=== PATIENT | female | born 1980 | race Caucasian/White ===

== ENCOUNTER 2017-07-18 17:54 | Emergency (ER) | payer OTHER ==
--- NOTE | 2017-07-18 18:09 | PDOC ---
Rapid Medical Evaluation Medical Evaluation: Allergies Allergy/AdvReac Type Severity Reaction Status Date / Time No Known Allergies Allergy Verified 08/25/14 00:05 07/18/17 18:09 Pt seen 36 yr old with a left hand 5th finger fx from tuesday at [facility] and it is splinted, now can not find a orthopedic and needs to be reasssesed. ordered left hand xray PT to be seen and evaluated by ER
[2017-07-18 18:10] VITALS: BP 139/74; PULSE 98; TEMP 98; BMI 29.7
[2017-07-18] MEDS ORDERED: IBUPROFEN 600 MG TABLET (FP) PO ONE ×2 (19:05)
--- NOTE | 2017-07-18 19:09 | PDOC ---
History of Present Illness - General Chief Complaint: Injury Stated Complaint: FINGER INJURY Time Seen by Provider: 07/18/17 18:13 History Source: Patient Exam Limitations: No Limitations - History of Present Illness Initial Comments: 07/18/17 19:10 This is a 36-year-old woman without significant past medical history presents emergency Department today with 3 days of left finger pain status post having a car door slam on her. Patient states that Tuesday afternoon she was better and in a car door when her daughter closed the door on her finger. She was evaluated at another hospital and told she had a fracture and was given a referral to an orthopedist who does not take her insurance. When she called her insurance company they referred her to [facility] through phone number and when she called she was told to come to the emergency room to see the on-call orthopedist. Past History - Past Medical History Allergies/Adverse Reactions: Allergies Allergy/AdvReac Type Severity Reaction Status Date / Time No Known Allergies Allergy Verified 07/18/17 18:03 Home Medications: Ambulatory Orders NK [No Known Home Medication] 07/18/17 Anemia: Yes COPD: No HTN: Yes - Suicide/Smoking/Psychosocial Hx Smoking History: Current every day smoker Have you smoked in the past 12 months: Yes Number of Cigarettes Smoked Daily: 10 Information on smoking cessation initiated: Yes 'Breaking Loose' booklet given: 07/18/17 Hx Alcohol Use: No Drug/Substance Use Hx: No Substance Use Type: None Review of Systems - Review of Systems Able to Perform ROS?: Yes Is the patient limited Occitan proficient: No Constitutional: No: Symptoms Reported HEENTM: No: Symptoms Reported Respiratory: No: Symptoms reported Cardiac (ROS): No: Symptoms Reported ABD/GI: No: Symptoms Reported : No: Symptoms Reported Musculoskeletal: Yes: See HPI Integumentary: No: Symptoms Reported Neurological: No: Symptoms reported Endocrine: No: Symptoms Reported *Physical Exam - Vital Signs Last Vital Signs Temp Pulse Resp BP Pulse Ox 98.0 F 98 H 18 139/74 100 07/18/17 18:03 07/18/17 18:03 07/18/17 18:03 07/18/17 18:03 07/18/17 18:03 - Physical Exam General Appearance: Yes: Appropriately Dressed. No: Apparent Distress HEENT: positive: Normal ENT Inspection Neck: positive: Trachea midline, Supple Respiratory/Chest: positive: Lungs Clear, Normal Breath Sounds. negative: Respiratory Distress, Accessory Muscle Use Cardiovascular: positive: Regular Rhythm, Regular Rate. negative: Murmur Gastrointestinal/Abdominal: positive: Normal Bowel Sounds, Soft. negative: Tender Musculoskeletal: positive: Normal Inspection. negative: CVA Tenderness Extremity: positive: Normal Inspection, Swelling (over left fifth phalanx). negative: Normal Range of Motion Integumentary: positive: Normal Color, Dry, Warm Neurologic: positive: Alert, Normal Response Medical Decision Making - Medical Decision Making 07/18/17 19:13 A/P: 36-year-old woman without significant past medical history with 3 days of right hand pain Swelling and tenderness to the proximal phalanx of the fifth digit of the left hand Finger splint in place from previous ED visit on 07/15 No discoloration noted Capillary refill less than 2 seconds X-ray done in rapid medical evaluation reveals a mildly displaced fracture of the proximal phalanx of the fifth digit on the left hand. I will discharge the patient with referral to Dr. Galindo for continued evaluation of this orthopedic issue *DC/Admit/Observation/Transfer Diagnosis at time of Disposition: Finger fracture, left Qualifiers: Encounter type: subsequent encounter Finger: little finger Fracture type: closed Phalanx: proximal Fracture alignment: displaced - Discharge Dispostion Disposition: HOME Condition at time of disposition: Stable Admit: No - Referrals Referrals: Maikel Murdock [Primary Care Provider] - Henrry Galindo MD [Staff Physician] - - Patient Instructions Additional Instructions: You have been given the recommendation to see orthopedist Dr. Galindo. Please call his office for evaluation at the number you been provided. Take Motrin as Prevacid prescribed for pain. Return to emergency department for any other concerns. - Post Discharge Activity Forms/Work/School Notes: Back to Work
== END 2017-07-18 19:23 | disposition home or self-care (01) ==
LOC: JERFT 17:54
DX: S62.617D Displaced fracture of proximal phalanx of left little finger, subsequent encounter for fracture with routine healing (principal); V48.3XXD Unspecified car occupant injured in noncollision transport accident in nontraffic accident, subsequent encounter
CPT/HCPCS: 73130-TC-LR-FY; 99281-25

== ENCOUNTER 2018-01-11 13:45 | Emergency (ER) | payer OTHER ==
[2018-01-11 14:01] VITALS: BP 140/72; PULSE 95; TEMP 99.3; BMI 36.3
--- NOTE | 2018-01-11 14:30 | PDOC ---
History of Present Illness - General Chief Complaint: Cold Symptoms Stated Complaint: Cold Symptoms Time Seen by Provider: 01/11/18 14:18 - History of Present Illness Initial Comments: 37-year-old female without comorbidities presents for evaluation of cough and fever is general and as well as general malaise 2 days. 01/11/18 14:28 Past History - Past Medical History Allergies/Adverse Reactions: Allergies Allergy/AdvReac Type Severity Reaction Status Date / Time No Known Allergies Allergy Verified 01/11/18 13:58 Home Medications: Ambulatory Orders NK [No Known Home Medication] 07/18/17 Anemia: Yes COPD: No HTN: Yes - Suicide/Smoking/Psychosocial Hx Smoking History: Current every day smoker Have you smoked in the past 12 months: Yes Number of Cigarettes Smoked Daily: 20 Information on smoking cessation initiated: No 'Breaking Loose' booklet given: 07/18/17 Hx Alcohol Use: No Drug/Substance Use Hx: No Substance Use Type: None Review of Systems - Review of Systems Constitutional: Yes: Chills, Fever, Malaise, Night Sweats Respiratory: Yes: Cough All Other Systems: Reviewed and Negative *Physical Exam - Vital Signs Last Vital Signs Temp Pulse Resp BP Pulse Ox 99.3 F 95 H 16 140/72 100 01/11/18 13:59 01/11/18 13:59 01/11/18 13:59 01/11/18 13:59 01/11/18 13:59 - Physical Exam Comments: HEAD: NC/AT EYES: Conjuntiva clear Ears: Canals and TM's normal NOSE: No d/c THROAT: Moist mucous membrances, oral pharanx clear, uvula midline NECK: Supple without adenopathy CARDIAC: S1 S2 LUNGS: CTA Full and Equal breath sounds ABDOMEN: Soft NT ND MS: Full ROM in all joints without edema NEUROLOGIC: No gross sensory or motor deficits, NVID SKIN: Normal color and temperature no lesions or rashes 01/11/18 14:28 Medical Decision Making - Medical Decision Making 01/11/18 15:12 Flu swab negative, most likely a viral upper respiratory intact infection *DC/Admit/Observation/Transfer Diagnosis at time of Disposition: URI (upper respiratory infection) - Discharge Dispostion Disposition: HOME Condition at time of disposition: Stable Decision to Admit order: No - Referrals Referrals: Maikel Murdock [Primary Care Provider] - - Patient Instructions Printed Discharge Instructions: DI for Viral Upper Respiratory Infection -- Adult Additional Instructions: Take Tylenol and Motrin for pain. Return to the emergency room should symptoms worsen or go unresolved. Please follow-up with her primary care physician once 2 days further evaluation and treatment options. - Post Discharge Activity
== END 2018-01-11 15:17 | disposition home or self-care (01) ==
LOC: JERFT 13:45
DX: J06.9 Acute upper respiratory infection, unspecified (principal)
CPT/HCPCS: 87804; 99281-25

== ENCOUNTER 2018-03-29 18:57 | Emergency (ER) | payer OTHER ==
[2018-03-29 19:02] VITALS: BP 142/72; PULSE 102; TEMP 98.2; BMI 31.3
--- NOTE | 2018-03-29 19:28 | PDOC ---
History of Present Illness - General Chief Complaint: Toothache Stated Complaint: TOOTHACHE Time Seen by Provider: 03/29/18 19:12 - History of Present Illness Initial Comments: 03/29/18 19:26 37-year-old female without comorbidities presents for evaluation of toothache 2 days without systemic symptoms. Past History - Past Medical History Allergies/Adverse Reactions: Allergies Allergy/AdvReac Type Severity Reaction Status Date / Time No Known Allergies Allergy Verified 03/29/18 19:02 Home Medications: Ambulatory Orders Amoxicillin - [Amoxicillin 875mg Tablet -] 875 mg PO BID #14 tab 03/29/18 Ibuprofen [Motrin -] 600 mg PO TID #30 tablet 03/29/18 Anemia: Yes COPD: No HTN: Yes - Suicide/Smoking/Psychosocial Hx Smoking History: Never smoked Have you smoked in the past 12 months: Yes Number of Cigarettes Smoked Daily: 20 Information on smoking cessation initiated: No 'Breaking Loose' booklet given: 07/18/17 Hx Alcohol Use: No Drug/Substance Use Hx: No Substance Use Type: None Review of Systems - Review of Systems HEENTM: Yes: See HPI, Dental Problems *Physical Exam - Vital Signs Last Vital Signs Temp Pulse Resp BP Pulse Ox 98.2 F 102 H 19 142/72 99 03/29/18 18:59 03/29/18 18:59 03/29/18 18:59 03/29/18 18:59 03/29/18 18:59 - Physical Exam Comments: 03/29/18 19:26 HEAD: NC/AT EYES: Conjuntiva clear Ears: Canals and TM's normal NOSE: No d/c THROAT: Moist mucous membrances, oral pharanx clear, uvula midline, diffuse dental decay MS: Full ROM in all joints without edema NEUROLOGIC: No gross sensory or motor deficits, NVID SKIN: Normal color and temperature no lesions or rashes Moderate Sedation - Procedure Monitoring Vital Signs: Procedure Monitoring Vital Signs Temperature 98.2 F 03/29/18 18:59 Pulse Rate 102 H 03/29/18 18:59 Respiratory Rate 19 03/29/18 18:59 Blood Pressure 142/72 03/29/18 18:59 O2 Sat by Pulse Oximetry (%) 99 03/29/18 18:59 *DC/Admit/Observation/Transfer Diagnosis at time of Disposition: Toothache - Discharge Dispostion Disposition: HOME Condition at time of disposition: Stable Decision to Admit order: No - Referrals Referrals: Maikel Murdock [Primary Care Provider] - [facility]Outside] - Patient Instructions Printed Discharge Instructions: DI for Tooth Decay Additional Instructions: Please follow-up with urgent care dental in one to 2 days for further evaluation and treatment options. Take the antibiotics as directed and finish the entire course. The Motrin as directed as one tablet 3 times a day with food discontinue the medication if it bothers her stomach. Return to the emergency room should symptoms worsen or go unresolved. - Post Discharge Activity
== END 2018-03-29 19:38 | disposition home or self-care (01) ==
LOC: JERFT 18:57
DX: K08.89 Other specified disorders of teeth and supporting structures (principal); I10 Essential (primary) hypertension; D64.9 Anemia, unspecified
CPT/HCPCS: 99281-25

== ENCOUNTER 2018-12-25 16:14 | Emergency (ER) | payer OTHER | END 2018-12-25 17:19 | disposition home or self-care (01) | LOC: JERFT 16:14 ==

== ENCOUNTER 2019-05-12 13:33 | Emergency (ER) | payer OTHER ==
[2019-05-12 14:10] VITALS: BMI 29.5
--- NOTE | 2019-05-12 14:35 | PDOC ---
Attending Attestation - Resident Resident Name: Walt Singh - HPI HPI: 05/12/19 16:24 Pt presents to the ED complaining of a 5 day history of painless vaginal bleeding that started as spotting but yesterday was heavy. Denies nausea or vomiting. Denies abdominal pain. LMP was 04/19. 05/12/19 16:28 - Physicial Exam PE: 05/12/19 16:27 Agree with resident exam. Patient is alert and oriented and in no acute distress. Abdomen soft, non tender, non distended without guarding or rebound. - Medical Decision Making 05/12/19 16:28 pt presents to the ED complaining of vaginal bleeding. Labs show no evidence of anemia, but do show non specific LFT elevation. Minimal bleeding on pelvic, as noted by resident exam. Will discharge patient home with instructions to follow up with embroidery assistant and PCP/ 05/12/19 16:38
--- NOTE | 2019-05-12 14:56 | PDOC ---
History of Present Illness - General Chief Complaint: Vaginal Bleeding Stated Complaint: vaginal bleeding Time Seen by Provider: 05/12/19 14:35 History Source: Patient Exam Limitations: No Limitations - History of Present Illness Initial Comments: 38 yo F with a hx of anemia presents to the emergency department with painless vaginal bleeding that has been ongoing for 5 days. Per the patient, she has her menstrual period usually the 9th of every month that is regular. Per the patient , her vaginal bleeding has been the heaviest its ever been without abdominal pain. Concurrent to these symptoms, she has been having a cough for the past month without the following features: chest pain, SOB, fevers, chills, productive cough, lightheadedness, vomiting, and dysuria. Endorses nausea. Allergies: NKDA Past History - Past Medical History Allergies/Adverse Reactions: Allergies Allergy/AdvReac Type Severity Reaction Status Date / Time No Known Allergies Allergy Verified 12/25/18 16:32 Home Medications: Ambulatory Orders NK [No Known Home Medication] 05/12/19 Anemia: Yes COPD: No HTN: Yes - Psycho Social/Smoking Cessation Hx Smoking History: Current every day smoker Have you smoked in the past 12 months: No Number of Cigarettes Smoked Daily: 10 Information on smoking cessation initiated: No 'Breaking Loose' booklet given: 07/18/17 Hx Alcohol Use: No Drug/Substance Use Hx: No Substance Use Type: None Review of Systems - Review of Systems Able to Perform ROS?: Yes Is the patient limited Kiswahili proficient: No Constitutional: No: Chills, Diaphoresis, Fever, Weakness HEENTM: No: Eye Pain, Ear Pain, Nose Pain, Throat Pain, Mouth Pain Respiratory: Yes: Cough. No: Shortness of Breath, Hemoptysis Cardiac (ROS): No: Chest Pain, Lightheadedness, Palpitations, Chest Tightness ABD/GI: Yes: Nausea. No: Constipated, Diarrhea, Poor Appetite, Poor Fluid Intake, Rectal Bleeding, Vomiting, Indigestion, Abdominal cramping, Tarry Stools : Yes: Other (vaginal bleeding). No: Burning, Dysuria, Hematuria Musculoskeletal: No: Back Pain, Joint Pain, Neck Pain Integumentary: No: Bruising, Erythema, Rash Neurological: No: Headache, Numbness, Tingling, Tremors Psychiatric: No: Change in Appetite Endocrine: No: Unexplained Weight Loss Hematologic/Lymphatic: Yes: Anemia *Physical Exam - Vital Signs Last Vital Signs Temp Pulse Resp BP Pulse Ox 97.8 F 98 H 19 142/79 98 05/12/19 14:05/12/19 14:05/12/19 14:05/12/19 14:05/12/19 14:02 - Physical Exam General Appearance: Yes: Nourished, Appropriately Dressed. No: Apparent Distress, Intoxicated HEENT: positive: EOMI, CODY, Normal Voice, Symmetrical, Pharynx Normal, Hearing Grossly Normal. negative: Pale Conjunctivae, Scleral Icterus (R), Scleral Icterus (L), Muffled/Hoarse voice, Pharyngeal Erythema, Tonsillar Exudate, Tonsillar Erythema, Nasal Congestion, Rhinorrhea, Excessive drooling Neck: positive: Trachea midline, Supple. negative: Tender, Lymphadenopathy (R) , Lymphadenopathy (L), Tender lateral, Tender midline Respiratory/Chest: positive: Lungs Clear, Normal Breath Sounds. negative: Chest Tender, Respiratory Distress, Accessory Muscle Use, Rhonchi, Stridor, Wheezing Cardiovascular: positive: Regular Rhythm, Regular Rate, S1, S2. negative: Systolic Murmur Female Pelvic Exam: positive: normal external exam, cervical os closed, vaginal bleeding. negative: CMT, discharge, lesions, Bartholin mass Gastrointestinal/Abdominal: positive: Normal Bowel Sounds, Flat, Soft. negative : Tender Lymphatic: negative: Adenopathy Musculoskeletal: positive: Normal Inspection. negative: CVA Tenderness, Vertebral Tenderness Integumentary: positive: Normal Color, Dry, Warm. 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 Per the patient, she has her menstrual period usually the 9th of every month that is regular. Initial vitals: Initial Vital Signs Temp Pulse Resp BP Pulse Ox 97.8 F 98 H 19 142/79 98 05/12/19 14:02 05/12/19 14:05/12/19 14:05/12/19 14:05/12/19 14:02 Work up: patient presents with vaginal bleeding. will obtain bhcg to determine status. Cervical os is closed. patient will also have a cbc drawn to determine if clinically significant anemia present. Laboratory Tests 05/12/19 05/12/19 05/12/19 15:28 15:28 15:28 WBC 10.5 H RBC 5.42 H Hgb 13.3 Hct 41.3 MCV 76.1 L MCH 24.6 L MCHC 32.3 RDW 16.4 H Plt Count 195 MPV 9.7 Absolute Neuts (auto) 7.0 Neutrophils % 66.6 Lymphocytes % 26.6 Monocytes % 4.6 Eosinophils % 1.5 Basophils % 0.7 Nucleated RBC % 0 Sodium 135 L Potassium 3.8 Chloride 104 Carbon Dioxide 24 Anion Gap 7 L BUN 9.0 Creatinine 0.7 Est GFR (CKD-EPI)AfAm 127.39 Est GFR (CKD-EPI)NonAf 109.91 Random Glucose 272 H Calcium 8.9 Total Bilirubin 0.3 AST 211 H ALT 192 H Alkaline Phosphatase 157 H Total Protein 7.1 Albumin 3.4 Beta HCG, Quant < 1.0 Urine Color Red Urine Appearance Clear Urine pH 5.5 Ur Specific [place] 1.037 H Urine Protein 2+ H Urine Glucose (UA) 3+ H Urine Ketones Negative Urine Blood 3+ H Urine Nitrite Negative Urine Bilirubin Negative Urine Urobilinogen 0.2 Ur Leukocyte Esterase 1+ H Urine WBC (Auto) 28 Urine RBC (Auto) 2296 Urine Casts (Auto) 3 U Epithel Cells (Auto) 4.1 Urine Bacteria (Auto) 53.0 Patient's labs significant for AST/ALT elevations with an elevation of alk phos The patient denies drinking ETOH and denies hx of hep c or b. Denies IVDA as well. Patient to follow up with her pMD and wrap checker referred to her within 1 week after discharge. negative and hgb status within normal limits. Patient to be discharged. Discharge - Discharge Information Problems reviewed: Yes Clinical Impression/Diagnosis: Transaminitis, Vaginal bleeding Disposition: HOME - Admission No - Follow up/Referral Referrals: Maikel Murdock [Primary Care Provider] - Kenton Ramos DO [Staff Physician] - Ross Madera MD [Staff Physician] - - Patient Discharge Instructions Patient Printed Discharge Instructions: Alanine Aminotransferase, Aspartate Aminotransferase, DI for Vaginal Bleeding Additional Instructions: You were seen in the emergency department for your vaginal bleeding. Your labs indicate that you have an elevation in your alk phos, AST, ALT. Please follow up with your primary medical doctor within 3 days after discharge for follow up care and management. Please return to the emergency department if you have worsening symptoms or new concerning symptoms. Please follow up with the gastroenterology doctor within 3 days after discharge for follow up pain and management. - Post Discharge Activity
[2019-05-12 15:52] LABS: BASO % 0.7 % (0-2.0); EOS % 1.5 % (0-4.5); HEMATOCRIT 41.3 % (32.4-45.2); HEMOGLOBIN 13.3 GM/dL (10.7-15.3); LYMPH % 26.6 % (8-40); MCH 24.6 pg (25.7-33.7); MCHC 32.3 g/dl (32.0-36.0); MEAN CELL VOLUME 76.1 fl (80-96); MEAN PLT VOLUME 9.7 fl (7.5-11.1); MONO % 4.6 % (3.8-10.2); NEUT % 66.6 % (42.8-82.8); PLATELET COUNT 195 K/MM3 (134-434); RBC 5.42 M/mm3 (3.60-5.2); RDW 16.4 % (11.6-15.6); WHITE BLOOD COUNT 10.5 K/mm3 (4.0-10.0)
[2019-05-12 15:55] LABS: EPI CELLS 4.1 /HPF (0-5/HPF); HYALINE CASTS 3 /lpf (0-8); PH,URINE 5.5 (5.0-8.0); URINE APPEARANCE CLEAR; URINE BILIRUBIN NEGATIVE (NEGATIVE); URINE COLOR RED; URINE GLUCOSE (UA) 3+ (NEGATIVE); URINE KETONE NEGATIVE (NEGATIVE); URINE LEUK ESTERASE 1+ (NEGATIVE); URINE NITRITE NEGATIVE (NEGATIVE); URINE PROTEIN 2+ (NEGATIVE); URINE RBC 2296 /hpf (0-4); URINE UROBILINOGEN 0.2 mg/dL (0.2-1.0); URINE WBC 28 /hpf (0-5)
[2019-05-12 16:23] LABS: ALBUMIN 3.4 g/dl (3.4-5.0); ALK PHOS 157 U/L (45-117); ANION GAP 7 MMOL/L (8-16); BILIRUBIN,TOTAL 0.3 mg/dL (0.2-1); CALCIUM 8.9 mg/dL (8.5-10.1); CHLORIDE 104 mmol/L (98-107); CO2 24 mmol/L (21-32); CREATININE 0.7 mg/dL (0.55-1.3); GLUCOSE,RANDOM 272 mg/dL (74-106); POTASSIUM 3.8 mmol/L (3.5-5.1); SGOT/AST 211 U/L (15-37); SGPT/ALT 192 U/L (13-61); SODIUM 135 mmol/L (136-145); TOT PROT 7.1 g/dl (6.4-8.2)
[2019-05-12 17:50] VITALS: BP 138/85; PULSE 93; TEMP 98.4
== END 2019-05-12 17:00 | disposition home or self-care (01) ==
LOC: JER 13:33
DX: N93.8 Other specified abnormal uterine and vaginal bleeding (principal); R94.5 Abnormal results of liver function studies; R74.0 Nonspecific elevation of levels of transaminase and lactic acid dehydrogenase [LDH]; I10 Essential (primary) hypertension; Z86.2 Personal history of diseases of the blood and blood-forming organs and certain disorders involving the immune mechanism
CPT/HCPCS: 36415; 80053; 81003; 84702; 85025; 87086; 99283-25

== ENCOUNTER 2019-08-01 17:58 | Emergency (ER) | payer OTHER ==
[2019-08-01 18:20] VITALS: BP 130/82; PULSE 100; TEMP 98.9; BMI 29.5
[2019-08-01] MEDS ORDERED: traMADol HCL 50 MG TABLET PO ONE (18:49)
[2019-08-01] MEDS ORDERED: SODIUM CHLORIDE 1,000 ML IV STA (18:50)
[2019-08-01] MEDS ORDERED: IBUPROFEN 400 MG TABLET (FP) PO ONE ×2 (18:56→19:00)
[2019-08-01] MEDS ORDERED: CLINDAMYCIN HCL 150 MG CAPSULE (FP) PO ONE (19:22)
[2019-08-01 19:25] LABS: BASO % 0.8 % (0-2.0); EOS % 0.7 % (0-4.5); HEMATOCRIT 40.8 % (32.4-45.2); HEMOGLOBIN 12.9 GM/dL (10.7-15.3); LYMPH % 17.4 % (8-40); MCH 23.8 pg (25.7-33.7); MCHC 31.7 g/dl (32.0-36.0); MEAN CELL VOLUME 75.1 fl (80-96); MONO % 6.5 % (3.8-10.2); NEUT % 74.6 % (42.8-82.8); PLATELET COUNT 203 K/MM3 (134-434); RBC 5.44 M/mm3 (3.60-5.2); RDW 16.8 % (11.6-15.6); WHITE BLOOD COUNT 14.1 K/mm3 (4.0-10.0)
[2019-08-01] MEDS ORDERED: CLINDAMYCIN HCL 150 MG CAPSULE (FP) ONE ×2 (20:00)
[2019-08-01 20:06] LABS: ALBUMIN 3.4 g/dl (3.4-5.0); BILIRUBIN,TOTAL 0.4 mg/dL (0.2-1); CALCIUM 8.8 mg/dL (8.5-10.1); CREATININE 0.7 mg/dL (0.55-1.3); TOT PROT 7.2 g/dl (6.4-8.2)
[2019-08-01 21:07] LABS: PH,URINE 5.5 (5.0-8.0); URINE APPEARANCE CLOUDY; URINE BILIRUBIN NEGATIVE (NEGATIVE); URINE COLOR YELLOW; URINE GLUCOSE (UA) >1000 (NEGATIVE); URINE KETONE NEGATIVE (NEGATIVE)
[2019-08-01 21:08] LABS: URINE LEUK ESTERASE N (NEGATIVE); URINE NITRITE NEGATIVE (NEGATIVE); URINE PROTEIN 100 (NEGATIVE)
[2019-08-01 21:10] LABS: EPI CELLS 61 /uL (0-25.1); HYALINE CASTS 4 /uL (0-3.1); URINE BACTERIA 1492 /uL (0-1359); URINE RBC 58 /uL (0-23.9); URINE WBC 35 /uL (0-25.8)
== END 2019-08-01 21:55 | disposition home or self-care (01) ==
LOC: JER 17:58 → JERFT 17:58
PROC: 3E0337Z Introduction of Electrolytic and Water Balance Substance into Peripheral Vein, Percutaneous Approach (ICD-10-PCS; principal; 2019-08-01)
PROC: 0H99XZZ Drainage of Perineum Skin, External Approach (ICD-10-PCS; principal; 2019-08-01)
DX: L02.214 Cutaneous abscess of groin (principal); B35.4 Tinea corporis; B35.6 Tinea cruris
CPT/HCPCS: 10061; 36415; 80053; 81003; 82010; 85025; 96360; 99284-25

== ENCOUNTER 2020-01-07 14:20 | Emergency (ER) | payer OTHER ==
--- NOTE | 2020-01-07 14:36 | PDOC ---
Rapid Medical Evaluation Time Seen by Provider: 01/07/20 14:34 Medical Evaluation: Allergies Allergy/AdvReac Type Severity Reaction Status Date / Time No Known Allergies Allergy Verified 08/03/19 16:57 01/07/20 14:34 Pt presents to the ER for an abscess to the R groin Exam: deferred to provider Orders: defer to provider Pt to proceed to the ER for further evaluation Discharge Disposition - Diagnosis Abscess - Referrals - Patient Instructions - Post Discharge Activity
[2020-01-07 14:43] VITALS: BP 133/79; PULSE 93; TEMP 98.2; BMI 32.7
--- NOTE | 2020-01-07 15:49 | PDOC ---
History of Present Illness - General Chief Complaint: Abscess Boil Stated Complaint: LT LEG PAIN Time Seen by Provider: 01/07/20 14:34 History Source: Patient Exam Limitations: Clinical Condition - History of Present Illness Initial Comments: 01/07/20 15:51 Patient with history of [id number] diabetes on metformin presented with complaint of 3-day history of abscess to left groin area which is very painful with ambulation. Patient reported having similar episode 3 months ago which I&D was done and improved. Patient never followed up with [facility]. Patient also report red rash to bilateral thigh area for 4 days. Patient report has similar episode with a rash 3 months ago and was prescribed topical steroid which improved but came back again 4 days ago. Denies choking sensation, fever, chills. Denies any other symptoms Timing/Duration: reports: other (3 days) Past History - Medical History Allergies/Adverse Reactions: Allergies Allergy/AdvReac Type Severity Reaction Status Date / Time No Known Allergies Allergy Verified 01/07/20 14:43 Home Medications: Ambulatory Orders Clindamycin [Cleocin -] 300 mg PO Q6HPO #27 capsule 08/01/19 Clotrimazole 15 gm TP BID #1 cream..g. 08/01/19 Ibuprofen [Motrin -] 800 mg PO Q6H #30 tablet 08/01/19 metFORMIN HCL [Metformin HCl] 500 mg PO BID #30 tablet 08/01/19 Hydrocortisone 2.5% Lotion [Hytone 2.5% Lotion -] 1 applic TP BID PRN 7 Days #1 bottle 01/07/20 Mupirocin Ointment [Bactroban 2% Ointment -] 1 applic TP BID #1 tube 01/07/20 Sulfamethoxazole/Trimethoprim [Bactrim Ds -] 1 tab PO BID #14 tablet 01/07/20 Anemia: Yes COPD: No Diabetes: Yes HTN: Yes - Reproductive History Is Patient Now?: No (#): 4 Para: 4 - Psycho-Social/Smoking History Smoking History: Never smoked Have you smoked in the past 12 months: No Number of Cigarettes Smoked Daily: 10 'Breaking Loose' booklet given: 07/18/17 Review of Systems - Review of Systems Able to Perform ROS?: Yes Is the patient limited Chinese proficient: No Constitutional: No: Chills, Fever, Malaise HEENTM: No: Symptoms Reported, See HPI, Eye Pain, Blurred Vision, Tearing, Recent change in vision, Double Vision, Cataracts, Ear Pain, Ocular Prothesis, Ear Discharge, Nose Pain, Nose Congestion, Tinnitus, Nose Bleeding, Hearing Loss, Throat Pain, Throat Swelling, Mouth Pain, Dental Problems, Difficulty Swallowing, Mouth Swelling, Other Respiratory: No: Symptoms reported, See HPI, Cough, Orthopnea, Shortness of Breath, SOB with Exertion, SOB at Rest, Stridor, Wheezing, Productive cough, Hemoptysis, Other Cardiac (ROS): No: Symptoms Reported Musculoskeletal: Yes: Symptoms Reported, See HPI, Muscle Pain (left groin pain) Integumentary: Yes: Symptoms Reported, See HPI, Lumps (left groin abscess) Neurological: No: Symptoms reported All Other Systems: Reviewed and Negative *Physical Exam - Vital Signs Last Vital Signs Temp Pulse Resp BP Pulse Ox 98.2 F 93 H 18 133/79 99 01/07/20 14:41 01/07/20 14:41 01/07/20 14:41 01/07/20 14:41 01/07/20 14:41 - Physical Exam 01/07/20 16:02 GENERAL: Well developed, well nourished. Awake and alert in mild acute distress. PULMONARY: No evidence of respiratory distress. MUSCULOSKELETAL : mild tenderness over left inner thigh over 2 cm indurated abscess. No bony deformities SKIN: Warm and dry. Normal capillary refill. 2 cm soft induration to left inner thigh over creases on left thigh. No skin erythema. No drainage from site. Diffuse urticarial rash to bilateral inner thigh without excoriations. No open wounds. NEUROLOGICAL: Alert, awake, appropriate. No motor deficits in the lower extremities. Gait is normal without ataxia. PSYCHIATRIC: Cooperative. Good eye contact. Appropriate mood and affect. General Appearance: Yes: Nourished, Appropriately Dressed, Mild Distress Procedures - Incision and Drainage I&D Site: Left: Groin Betadine cleansed: Yes Anesthesia: 1% Lidocaine Volume(ml): 1 Blade Size: needle aspiration Plain Packing: No Complications: none Dressing: Yes Progress: 01/07/20 16:02 Wound cleaned with Betadine. Abscess aspirated with 12-gauge needle after area infiltrated with 1 cc 1% lidocaine. 10 cc of purulent drainage aspirated from abscess. Pressure dressing placed with 4 x 4 gauze and tape to abscess area. Patient tolerated procedure well. Medical Decision Making - Medical Decision Making 01/07/20 15:59 Patient with history of [id number] diabetes on metformin presented with complaint of 3-day history of abscess to left groin area which is very painful with ambulation. Patient reported having similar episode 3 months ago which I&D was done and improved. Patient never followed up with [facility]. Patient also report red rash to bilateral thigh area for 4 days. Patient report has similar episode with a rash 3 months ago and was prescribed topical steroid which improved but came back again 4 days ago. Denies choking sensation, fever, chills. Denies any other symptoms Exam significant for 2 cm soft induration to left inner thigh over creases on left thigh. No skin erythema. No drainage from site. Diffuse urticarial rash to bilateral inner thigh without excoriations. No open wounds. Wound cleaned with Betadine. Abscess aspirated with 12-gauge needle after area infiltrated with 1 cc 1% lidocaine. 10 cc of purulent drainage aspirated from abscess. Pressure dressing placed with 4 x 4 gauze and tape to abscess area. Patient tolerated procedure well. Patient advised on continues home wound care with warm compresses. Patient stable for discharge on Bactrim antibiotics twice daily for a week and topical mupirocin with [facility] follow-up. Patient also prescribed topical steroids for rash dermatitis to bilateral inner thigh area with dermatology follow-up. Discharge - Discharge Information Problems reviewed: Yes Clinical Impression/Diagnosis: Abscess, Groin abscess, Rash Condition: Stable Disposition: HOME - Admission No - Additional Discharge Information Prescriptions: Sulfamethoxazole/Trimethoprim [Bactrim Ds -] 1 tab PO BID #14 tablet Mupirocin Ointment [Bactroban 2% Ointment -] 1 applic TP BID #1 tube Hydrocortisone 2.5% Lotion [Hytone 2.5% Lotion -] 1 applic TP BID PRN 7 Days #1 bottle PRN Reason: rash - Follow up/Referral Referrals: Maikel Murdock [Primary Care Provider] - Reshma Riley MD [Staff Physician] - - Patient Discharge Instructions Patient Printed Discharge Instructions: DI for Incision and Drainage of a Skin Abscess Additional Instructions: Your abscess was drained today. Continue doing hot compresses to abscess area 2-3 times a day as discussed. Take prescribed antibiotics and finish it. Follow-up with your [facility]. Take prescribed topical cream for your rash. Make a follow-up appoint with referred boilermaker apprentice or the closest boilermaker apprentice to you - Post Discharge Activity
--- OUTSIDE RECORDS SUMMARY | 2020-01-07 15:52 | XMS ---
:1980 Author Organization [facility] Support Name Relationship Address Phone UE, UNEMPLOYED Unavailable Unavailable Unavailable UE Unavailable Unavailable Unavailable BONNIE MOJICA MOTHER [address] [place] [address] Re-disclosure Warning The records that you are about to access may contain information from federally- assisted alcohol or drug abuse programs. If such information is present, then the following federally mandated warning applies: This information has been disclosed to you from records protected by federal confidentiality rules (42 CFR part 2). The federal rules prohibit you from making any further disclosure of this information unless further disclosure is expressly permitted by the written consent of the person to whom it pertains or as otherwise permitted by 42 CFR part 2. A general authorization for the release of medical or other information is NOT sufficient for this purpose. The Federal rules restrict any use of the information to criminally investigate or prosecute any alcohol or drug abuse patient.The records that you are about to access may contain highly sensitive health information, the redisclosure of which is protected by Article 27-F of the [facility] Public Health law. If you continue you may haveaccess to information: Regarding HIV / AIDS; Provided by facilities licensed or operated by the [facility] Office of Mental Health; or Provided by the [facility] Office for People With Developmental Disabilities. If such information is present, then the following [facility] mandated warning applies: This information has been disclosed to you from confidential records which are protected by state law. State law prohibits you from making any further disclosure of this information without the specific written consent of the person to whom it pertains, or as otherwise permitted by law. Any unauthorized further disclosure in violation of state law may result in a fine or longterm sentence or both. A general authorization for the release of medical or other information is NOT sufficient authorization for further disclosure. Medications Medication Brand Start Product Dose Route Administrative Pharmacy [facility] Indications Reaction Description Data Name Date Form Instructions Instructions Source(s) Doxepin DOXEPI 11/22/ CAPSULE 30 complet DOXEPIN MEDGEN Hydrochlori N:1000 2019 ed ([facility] [address] de 10 MG 048 12:00: Medical Oral 00 AM Service) Capsule EDT DOXEPIN:100 0048 BENADRYL:30 11/22/ CAPSULE 14 complet BENAD RYL MEDGEN 9936 2020 ed ([place] 12:00: Medical 00 AM Service) EDT Prednisone PREDNI 11/22/ TABLET 6 complet PREDN ISONE MEDGEN 20 MG Oral SONE:3 2019 ed ([place] Tablet 70206 12:00: Medical PREDNISONE: 00 AM Service ) [id number] EDT Ramipril RAMIPR 11/22/ CAPSULE 30 complet RAMIPR IL MEDGEN 2.5 MG Oral IL:198 2019 ed ([facility] [address] Capsule 188 12:00: Medical RAMIPRIL:19 00 AM Service ) 8188 EDT LANCETS complet LANCETS MEDG EN MISCELLANEO 2020 ed MISCELLANEOU ([place] US: 12:00: S Medical 00 AM Service) EDT icosapent VASCEP 11/22/ CAPSULE 120 complet VASCE PA MEDGEN ethyl 1000 A:1304 2019 ed ([facility] MG Oral 985 12:00: Medical Capsule 00 AM Service) [Vascepa] EDT VASCEPA:130 4985 Isopropyl ALCOHO 11/22/ PAD 1 complet ALCOHOL PAD MEDGEN Alcohol 0.7 L 2020 ed ([place] ML/ML PAD:79 12:00: Medical Medicated 7544 00 AM Service) Pad ALCOHOL EDT PAD:797502 atorvastati LIPITO 11/22/ TABLET 30 complet LIPI TOR MEDGEN n 10 MG R:6173 2020 ed ([facility] Oral Tablet 14 12:00: Medica l [Lipitor] 00 AM Service) LIPITOR:617 EDT 314 UNIFINE 11/22/ 120 complet UNIFINE MEDG EN PENTIPS 2020 ed PENTIPS ([place] MISCELLANEO 12:00: MISCELLANEO U Medical US: 00 AM S Service) EDT BASAGLAR 11/22/ SOLUTION 300 complet BASAGLA R MEDGEN KWIKPEN:173 2020 ed KWIKPEN ([place] 7767 12:00: Medical 00 AM Service) EDT 3 ML HUMALO 08/14/ SOLUTION 5 complet HUMALOG M EDGEN Insulin G 2020 ed KWIKPEN ([place] Lispro 100 KWIKPE 12:00: Medic al UNT/ML Pen N:1652 00 AM Servic e) Injector 640 EDT [Humalog] HUMALOG KWIKPEN:696 2450 Aspirin 81 ASPIRI 08/14/ DELAYED 30 complet ASPI RIN MEDGEN MG Delayed N 2020 RELEASE ed ADULT EC LO W ([place] Release ADULT 12:00: TABLET DOSE Medical Oral Tablet EC LOW 00 AM Servi ce) [place]SE:[place] [address] LOW DOSE:[id number] Sulfamethox BACTRI 07/10/ TABLET 14 complet BACT RIM DS MEDGEN azole 800 M 2019 ed ([place] MG / DS:849 12:00: Medical Trimethopri 580 00 AM Service ) m 160 MG EDT Oral Tablet [Bactrim] BACTRIM DS:042821 ONETOUCH complet ONETOUCH ME DGEN VERIO IN 2020 ed VERIO IN ([facility] ay VITRO 12:00: VITRO STRIP Medic al STRIP: 00 AM Service) EDT Insurance Providers Payer name Policy type Policy ID Covered Covered constitution party's Policy P lou / Coverage constitution party ID relationship to English Inf ormation type english MEDICAID OF [id number] [facility] [id number] [facility] [id number] HEALTH NON CAP Problems, Conditions, and Diagnoses Code Display Name Description Problem Type Effective Data Sour ce(s) Dates F41.8 Other specified OTHER SPECIFIED Problem 08/29/2019 MEDG EN anxiety disorders ANXIETY DISORDERS 12:00:00 AM ([place] EDT Medical Service) E78.5 Hyperlipidemia, HYPERLIPIDEMIA, Problem 08/14/2019 MEDG EN unspecified UNSPECIFIED 12:00:00 AM ([place] EDT Medical Service) I10 Essential (primary) ESSENTIAL Problem 08/14/2019 MEDGE N hypertension (PRIMARY) 12:00:00 AM ([place] HYPERTENSION EDT Medical Service) J45.20 Mild intermittent MILD INTERMITTENT Problem 08/07/2019 MEDGEN asthma, ASTHMA, 12:00:00 AM ([place] uncomplicated UNCOMPLICATED EDT Medical Service) F17.200 Nicotine NICOTINE Problem 08/07/2019 MEDGEN dependence, DEPENDENCE, 12:00:00 AM ([place] unspecified, UNSPECIFIED, EDT Medical uncomplicated UNCOMPLICATED Service) E11.9 Type 2 diabetes TYPE 2 DIABETES Problem 08/07/2019 MEDG EN mellitus without MELLITUS WITHOUT 12:00:00 AM ( [place] complications COMPLICATIONS EDT Medical Service) F06.4 Anxiety disorder ANXIETY DISORDER Problem 08/07/2019 ME DGEN due to known DUE TO KNOWN 12:00:00 AM ([place] physiological PHYSIOLOGICAL EDT Medical condition CONDITION Service) Surgeries/Procedures Procedure Description Date Indications Data Source(s) Documentation of current 10/19/2019 MED GEN ([place] medications (procedure) 12:00:00 AM EDT edical Service) Documentation of current 10/19/2019 MED GEN ([place] medications (procedure) 12:00:00 AM EDT M edical Service) Documentation of current 10/19/2019 MED GEN ([place] medications (procedure) 12:00:00 AM EDT edical Service) Documentation of current 10/19/2019 MED GEN ([place] medications (procedure) 12:00:00 AM EDT edical Service) Documentation of current 10/10/2019 MED GEN ([place] medications (procedure) 12:00:00 AM EDT edical Service) Documentation of current 10/10/2019 MED GEN ([place] medications (procedure) 12:00:00 AM EDT edical Service) Documentation of current 10/10/2019 MED GEN ([place] medications (procedure) 12:00:00 AM EDT edical Service) Documentation of current 08/29/2019 MED GEN ([place] medications (procedure) 12:00:00 AM EDT edical Service) Documentation of current 08/14/2019 MED GEN ([place] medications (procedure) 12:00:00 AM EDT edical Service) Documentation of current 08/14/2019 MED GEN ([facility] medications (procedure) 12:00:00 AM EDT edical Service) Documentation of current 08/14/2019 MED GEN ([facility] medications (procedure) 12:00:00 AM EDT edical Service) Documentation of current 08/14/2019 MED GEN ([facility] medications (procedure) 12:00:00 AM EDT edical Service) Documentation of current 08/07/2019 MED GEN ([place] medications (procedure) 12:00:00 AM EDT edical Service) Documentation of current 08/07/2019 MED GEN ([facility] medications (procedure) 12:00:00 AM EDT M edical Service) Results ID Date Data Source [id number] 10/11/2019 12:00:00 AM EDT MEDGEN ([facility]) Name Value Range Interpretation Description Data Sup porting Code Source(s) Document(s ) SARS-CoV- Not Detected Normal (applies to MEDGEN 2, KASANDRA non-numeric ([facility] results) Medical Service) ID Date Data Source [id number] 10/11/2019 12:00:00 AM EDT [facility] ([facility]) Name Value Range Interpretation Description Data Sup porting Code Source(s) Document(s ) TSH,3RD 1.92 Normal (applies to MEDGEN GENERATION uIU/mL non-numeric ([facility] results) Medical Service) T4 TOTAL 9 ug/dL Normal (applies to MEDGEN THYROXINE non-numeric ([facility] results) Medical Service) T3 TOTAL 134 ng/dL Normal (applies to MEDGEN non-numeric ([facility] results) Medical Service) ID Date Data Source [id number] 10/11/2019 12:00:00 AM EDT [facility] ([facility]) Name Value Range Interpretation Code Description Data Supporting Source(s) Document(s ) GLYCOMARK 1.43 ug/mL Below low normal MEDGEN ([place] [facility]) ID Date Data Source [id number] 10/11/2019 12:00:00 AM EDT [facility] ([facility]) Name Value Range Interpretation Description Data Sup porting Code Source(s) Document(s ) Hemoglobin A1c 9.0 % Above high normal MEDGEN in Blood ([facility]) ID Date Data Source [id number] 10/11/2019 12:00:00 AM EDT [facility] ([facility]) Name Value Range Interpretation Description Data Sup porting Code Source(s) Document(s ) Cholesterol 220 Above high normal MEDGEN [Moles/volume] mg/dL ([place] in Pericardial Medical fluid Service) CHOL/HDL RATIO 7.33 Above high normal MEDGEN ratio ([place] [facility]) LDL CALCULATION 133.0 Above high normal MEDGEN mg/dL ([facility]) HDL CHOLESTEROL 30 mg/dL Below low normal MEDGEN ([facility]) VLDL CALCULATION 57.0 Above high normal MEDGE N mg/dl ([facility]) TRIGLYCERIDES 285 Above high normal MEDGEN mg/dL ([place] [facility]) ID Date Data Source [id number] 10/11/2019 12:00:00 AM EDT MEDGEN ([facility]) Name Value Range Interpretation Description Data Sup porting Code Source(s) Document(s ) WBC 10.3 Normal (applies MEDGEN 10(3)/uL to non-numeric ([place] results) Medical Service) RBC 5.3 Above high normal MEDGEN 10(6)/uL ([place]) Hemoglobin 12.4 g/dL Normal (applies MEDGEN [Mass/volume] to non-numeric ([place] in Mixed venous results) Medical blood by Service) Oximetry MCV 76.7 fL Below low normal MEDGEN ([place]) Hematocrit 40.6 % Normal (applies MEDGEN [Pure volume to non-numeric ([facility] fraction] of results) Medical Blood by Service) Automated count MCHC 31 g/dL Normal (applies MEDGEN to non-numeric ([place] results) Medical Service) MCH 23 pg Below low normal MEDGEN ([facility]) RDWCV 16.8 % Above high normal MEDGEN ([place] [facility]) RDWSD 45.9 fL Normal (applies MEDGEN to non-numeric ([place] results) Medical Service) MPV 11.9 fL Normal (applies MEDGEN to non-numeric ([place] results) Medical Service) Platelet Count 179 Normal (applies MEDGEN 10(3)/uL to non-numeric ([place] results) Medical Service) Lymphocyte Abs 3.14 Normal (applies MEDGEN 10(3)/uL to non-numeric ([facility] results) Medical Service) Monocyte Abs 0.28 Normal (applies MEDGEN 10(3)/uL to non-numeric ([place] results) Medical Service) Neutrophil Abs 6.69 Above high normal MEDGEN 10(3)/uL ([place] [facility] Service) Eosinophil Abs 0.09 Normal (applies MEDGEN 10(3)/uL to non-numeric ([place] results) Medical Service) Basophil Abs 0.05 Normal (applies MEDGEN 10(3)/uL to non-numeric ([place] results) Medical Service) Neutrophil % 64.90 % Normal (applies MEDGEN to non-numeric ([place] results) Medical Service) Immature 0.05 Normal (applies MEDGEN Granulocyte Abs 10(3)/uL to non-numeric ([place] results) Medical Service) Lymphocyte % 31 % Normal (applies MEDGEN to non-numeric ([place] results) Medical Service) Monocyte % 2.7 % Normal (applies MEDGEN to non-numeric ([place] results) Medical Service) Basophil % 0.5 % Normal (applies MEDGEN to non-numeric ([facility] results) Medical Service) Eosinophil % 0.9 % Normal (applies MEDGEN to non-numeric ([place] results) Medical Service) Immature 0.50 % Normal (applies MEDGEN Granulocyte % to non-numeric ([place] results) Medical Service) NRBC % 0.0 % Normal (applies MEDGEN to non-numeric ([place] results) Medical Service) NRBC Abs 0.00 Normal (applies MEDGEN 10(3)/uL to non-numeric ([place] results) Medical Service) ID Date Data Source [id number] 10/11/2019 12:00:00 AM EDT MEDGEN ([facility]) Name Value Range Interpretation Description Data Sup porting Code Source(s) Document(s ) SODIUM, SERUM 138 Normal (applies MEDGEN mEq/L to non-numeric ([place] results) Medical Service) GLUCOSE 220 Above high normal MEDGEN NONFASTING,SERUM mg/dL ([place]) POTASSIUM, SERUM 4.3 Normal (applies MEDGEN mEq/L to non-numeric ([place] results) Medical Service) Anion gap in 17.3 Normal (applies MEDGEN Body fluid mEq/L to non-numeric ([place] results) Medical Service) CHLORIDE, SERUM 100 Normal (applies MEDGEN mEq/L to non-numeric ([place] results) Medical Service) Carbon dioxide 25 mEq/L Normal (applies MEDGEN [VFr/PPres] in to non-numeric ([place] Gas delivery results) Medical system Service) BLOOD UREA 9 mg/dL Normal (applies MEDGEN NITROGEN to non-numeric ([place] results) Medical Service) CREATININE, 0.80 Normal (applies MEDGEN SERUM mg/dL to non-numeric ([place] results) Medical Service) CALCIUM, SERUM 9.4 Normal (applies MEDGEN mg/dL to non-numeric ([place] results) Medical Service) TOTAL PROTEIN 7.1 g/dL Normal (applies MEDGEN to non-numeric ([facility] results) Medical Service) Microalbumin 4.0 g/dL Normal (applies MEDGEN [Mass/time] in to non-numeric ([place] Urine collected results) Medical for unspecified Service) duration Globulin 3.1 gldl Normal (applies MEDGEN [Mass/time] in to non-numeric ([place] 24 hour Urine results) Medical Service) A/G RATIO 1.29 Normal (applies MEDGEN g/dl to non-numeric ([place] results) Medical Service) BILIRUBIN, TOTAL 0.4 Normal (applies MEDGEN mg/dL to non-numeric ([facility] results) Medical Service) ALT (SGPT) 63 U/L Above high normal MEDGEN ([facility]) ALKALINE 134 U/L Above high normal MEDGEN PHOSPHATASE, ALP ([facility]) AST 69 U/L Above high normal MEDGEN ([facility]) EGFR NON AFR 85 Normal (applies MEDGEN [place] mL/min/1 to non-numeric ([facility] .73m2 results) Medical Service) EGFR AFR 103 Normal (applies MEDGEN [place] mL/min/1 to non-numeric ([facility] .73m2 results) Medical Service) ID Date Data Source [id number] 10/10/2019 03:02:00 PM EDT [facility] Name Value Range Interpretation Description Data Sup porting Code Source(s) Document(s ) SARS [facility] coronavirus 2 RNA This lab was ordered by [facility] and reported by [facility]. ID Date Data Source [id number] 08/07/2019 12:00:00 AM EDT MEDGEN ([facility] Service) Name Value Range Interpretation Code Description Data Irma rce(s) Supporting Document(s ) SARS-CoV- NEGATIVE Normal (applies to MEDGEN 2 IGG non-numeric ([place] results) Medical Service) ID Date Data Source [id number] 08/07/2019 12:00:00 AM EDT MEDGEN ([facility] Medical Service) Name Value Range Interpretation Description Data Sup porting Code Source(s) Document(s ) EOSINOPHYL ABSENT Abnormal (applies MEDGEN COUNT to non-numeric ([place] results) Medical Service) ID Date Data Source [id number] 08/07/2019 12:00:00 AM EDT MEDGEN ([facility] Service) Name Value Range Interpretation Description Data Sup porting Code Source(s) Document(s ) TSH,3RD 2.65 Normal (applies to MEDGEN GENERATION uIU/mL non-numeric ([facility] results) Medical Service) T4 TOTAL 10.3 Normal (applies to MEDGEN THYROXINE ug/dL non-numeric ([place] results) Medical Service) T3 TOTAL 115 ng/dL Normal (applies to MEDGEN non-numeric ([place] results) Medical Service) ID Date Data Source [id number] 08/07/2019 12:00:00 AM EDT MEDGEN ([facility] Service) Name Value Range Interpretation Description Data Sup porting Code Source(s) Document(s ) VITAMIN D 9.65 Below low normal MEDGEN 25-HYDROXY ng/mL ([place]) ID Date Data Source [id number] 08/07/2019 12:00:00 AM EDT MEDGEN ([facility] Service) Name Value Range Interpretation Description Data Sup porting Code Source(s) Document(s ) VITAMIN B12 662 pg/mL Normal (applies to MEDGEN non-numeric ([place] results) Medical Service) ID Date Data Source [id number] 08/07/2019 12:00:00 AM EDT MEDGEN ([facility] Service) Name Value Range Interpretation Description Data Sup porting Code Source(s) Document(s ) FOLATE 10.1 ng/mL Normal (applies to MEDGEN SERUM non-numeric ([place] results) Medical Service) ID Date Data Source [id number] 08/07/2019 12:00:00 AM EDT MEDGEN ([facility] Medical Service) Name Value Range Interpretation Description Data Sup porting Code Source(s) Document(s ) Cholesterol 237 Above high normal MEDGEN [Moles/volume] mg/dL ([place] in Pericardial Medical fluid Service) LDL CALCULATION 132.6 Above high normal MEDGEN mg/dL ([facility]) HDL CHOLESTEROL 33 mg/dL Below low normal MEDGEN ([place]) CHOL/HDL RATIO 7.18 Above high normal MEDGEN ratio ([place] Service) TRIGLYCERIDES 357 Above high normal MEDGEN mg/dL ([place]) VLDL CALCULATION 71.4 Above high normal MEDGE N mg/dl ([place] Service) ID Date Data Source [id number] 08/07/2019 12:00:00 AM EDT MEDGEN ([facility] Service) Name Value Range Interpretation Description Data Sup porting Code Source(s) Document(s ) BILIRUBIN, TOTAL NEGATIVE Normal (applies MEDGEN to non-numeric ([facility] results) Medical Service) GLUCOSE UA 150 mg/dL Normal (applies MEDGEN to non-numeric ([place] results) Medical Service) Ketones NEGATIVE Normal (applies MEDGEN [Presence] in to non-numeric ([facility] Blood by Tablet results) Medical Service) Specific gravity 1.015 SG Normal (applies MEDGEN of Pericardial units to non-numeric ([facility] fluid by results) Medical Refractometry Service) pH of Lower 5 Ph units Normal (applies MEDGEN respiratory to non-numeric ([place] specimen results) Medical Service) Blood [Presence] NEGATIVE Normal (applies MEDGEN in Urine by to non-numeric ([place] Visual results) Medical Service) Urobilinogen 0-2.0 Normal (applies MEDGEN [Presence] in to non-numeric ([place] Urine by results) Medical Automated test Service) strip Protein NEGATIVE Normal (applies MEDGEN [facility] Medical respiratory Service) specimen Leukocyte NEGATIVE Normal (applies MEDGEN esterase to non-numeric ([place] [Presence] in results) Medical Body fluid by Service) Automated test strip Color of YELLOW Normal (applies MEDGEN Peritoneal to non-numeric ([place] dialysis fluid results) Medical Service) Nitrite NEGATIVE Normal (applies MEDGEN [Presence] in to non-numeric ([place] Urine by Test results) Medical strip Service) TRANSPARENCY CLOUDY Abnormal MEDGEN (applies to ([place] non-numeric Medical results) Service) ID Date Data Source [id number] 08/07/2019 12:00:00 AM EDT MEDGEN ([facility]) Name Value Range Interpretation Description Data Sup porting Code Source(s) Document(s ) WBC 10.4 Normal (applies MEDGEN 10(3)/uL to non-numeric ([facility] results) Medical Service) RBC 5.6 Above high normal MEDGEN 10(6)/uL ([place] [facility]) Hemoglobin 12.9 g/dL Normal (applies MEDGEN [Mass/volume] to non-numeric ([facility] in Mixed venous results) Medical blood by Service) Oximetry Hematocrit 42.0 % Normal (applies MEDGEN [Pure volume to non-numeric ([place] fraction] of results) Medical Blood by Service) Automated count MCH 23 pg Below low normal MEDGEN ([place] [facility] Service) MCV 75.5 fL Below low normal MEDGEN ([place] [facility] Service) MCHC 31 g/dL Normal (applies MEDGEN to non-numeric ([facility] results) Medical Service) RDWSD 41.5 fL Normal (applies MEDGEN to non-numeric ([facility] results) Medical Service) RDWCV 15.3 % Normal (applies MEDGEN to non-numeric ([facility] results) Medical Service) Platelet Count 171 Normal (applies MEDGEN 10(3)/uL to non-numeric ([place] results) Medical Service) Neutrophil Abs 6.69 Above high normal MEDGEN 10(3)/uL ([facility] Service) MPV 12.0 fL Normal (applies MEDGEN to non-numeric ([place] results) Medical Service) Eosinophil Abs 0.12 Normal (applies MEDGEN 10(3)/uL to non-numeric ([place] results) Medical Service) Lymphocyte Abs 3.07 Normal (applies MEDGEN 10(3)/uL to non-numeric ([place] results) Medical Service) Monocyte Abs 0.46 Normal (applies MEDGEN 10(3)/uL to non-numeric ([place] results) Medical Service) Immature 0.09 Normal (applies MEDGEN Granulocyte Abs 10(3)/uL to non-numeric ([facility] results) Medical Service) Basophil Abs 0.08 Above high normal MEDGEN 10(3)/uL ([facility] Service) Neutrophil % 64.10 % Normal (applies MEDGEN to non-numeric ([facility] results) Medical Service) Lymphocyte % 30 % Normal (applies MEDGEN to non-numeric ([facility] results) Medical Service) Eosinophil % 1.2 % Normal (applies MEDGEN to non-numeric ([place] results) Medical Service) Monocyte % 4.4 % Normal (applies MEDGEN to non-numeric ([facility] results) Medical Service) Basophil % 0.8 % Normal (applies MEDGEN to non-numeric ([place] results) Medical Service) Immature 0.90 % Normal (applies MEDGEN Granulocyte % to non-numeric ([place] results) Medical Service) NRBC % 0.0 % Normal (applies MEDGEN to non-numeric ([place] results) Medical Service) NRBC Abs 0.00 Normal (applies MEDGEN 10(3)/uL to non-numeric ([place] results) Medical Service) ID Date Data Source [id number] 08/07/2019 12:00:00 AM EDT MEDGEN ([facility]) Name Value Range Interpretation Code Description Data Supporting Source(s) Document(s ) GLYCOMARK 2.17 ug/mL Below low normal MEDGEN ([facility] Service) ID Date Data Source [id number] 08/07/2019 12:00:00 AM EDT MEDGEN ([facility]) Name Value Range Interpretation Description Data Sup porting Code Source(s) Document(s ) Hemoglobin A1c 10.9 % Above high normal MEDGEN in Blood ([place] Medical [facility]) ID Date Data Source [id number] 08/07/2019 12:00:00 AM EDT MEDGEN ([facility]) Name Value Range Interpretation Description Data Sup porting Code Source(s) Document(s ) GLUCOSE 267 Above high normal MEDGEN NONFASTING,SERUM mg/dL ([place] Medical [facility]) SODIUM, SERUM 135 Normal (applies MEDGEN mEq/L to non-numeric ([place] results) Medical Service) POTASSIUM, SERUM 4.3 Normal (applies MEDGEN mEq/L to non-numeric ([place] results) Medical Service) CHLORIDE, SERUM 99 mEq/L Normal (applies MEDGEN to non-numeric ([place] results) Medical Service) Carbon dioxide 24 mEq/L Normal (applies MEDGEN [VFr/PPres] in to non-numeric ([place] Gas delivery results) Medical system Service) Anion gap in 16 mEq/L Normal (applies MEDGEN Body fluid to non-numeric ([place] results) Medical Service) BLOOD UREA 9 mg/dL Normal (applies MEDGEN NITROGEN to non-numeric ([place] results) Medical Service) CALCIUM, SERUM 9.7 Normal (applies MEDGEN mg/dL to non-numeric ([place] results) Medical Service) CREATININE, 0.70 Normal (applies MEDGEN SERUM mg/dL to non-numeric ([place] results) Medical Service) Microalbumin 4.4 g/dL Normal (applies MEDGEN [Mass/time] in to non-numeric ([place] Urine collected results) Medical for unspecified Service) duration TOTAL PROTEIN 7.2 g/dL Normal (applies MEDGEN to non-numeric ([place] results) Medical Service) A/G RATIO 1.57 Normal (applies MEDGEN g/dl to non-numeric ([place] results) Medical Service) Globulin 2.8 gldl Normal (applies MEDGEN [Mass/time] in to non-numeric ([place] 24 hour Urine results) Medical Service) BILIRUBIN, TOTAL 0.2 Below low normal MEDGEN mg/dL ([place] Medical Service) ALKALINE 141 U/L Above high normal [facility] PHOSPHATASE, ALP ([facility]) ALT (SGPT) 116 U/L Above high normal [facility] ([facility]) EGFR NON AFR 99 Normal (applies [facility] [place] mL/min/1 to non-numeric ([facility] .73m2 results) [facility] Service) AST 165 U/L Above high normal [facility] ([facility]) EGFR AFR 120 Normal (applies [facility] [place] mL/min/1 to non-numeric ([facility] .73m2 results) [facility]) Procedure Social History Code Duration Value Status Description Data Source(s ) Smoking 11/23/2019 smoker, denies completed smoker, denies [facility] ([facility] 12:00:00 AM EDT alcohol alcohol Medical S ervice) Smoking 11/23/2019 Unknown if ever completed Unknown if ever MEDG EN ([facility] 12:00:00 AM EDT smoked smoked Medical S ervice) Vital Signs ID Date Data Source UNK Name Value Range Interpretation Code Description Data Source(s) Body mass index 32.9 kg/m2 32.9 kg/m2 [facility] ([facility] (BMI) [Ratio] Medical Ser vice) Diastolic blood 70 mm[Hg] 70 mm[Hg] [facility] ([facility]) Systolic blood 120 mm[Hg] 120 mm[Hg] [facility] ([facility]) Body weight 163 lb 163 lb [facility] ([facility]) Body height 59 in 59 in MED[facility] ([facility]) Body mass index 32.9 kg/m2 32.9 kg/m2 [facility] ([facility] (BMI) [Ratio] Medical Ser vice) Diastolic blood 80 mm[Hg] 80 mm[Hg] [facility] ([facility]) Systolic blood 120 mm[Hg] 120 mm[Hg] [facility] ([facility] [place] [facility]) Body weight 163 lb 163 lb MED[facility] ([employer] [facility]) Body height 59 in 59 in MED[facility] ([facility]) Body mass index 32.9 kg/m2 32.9 kg/m2 [facility] ([facility] (BMI) [Ratio] Medical Ser vice) Diastolic blood 80 mm[Hg] 80 mm[Hg] [facility] ([facility]) Systolic blood 120 mm[Hg] 120 mm[Hg] [facility] ([facility] [place] [facility] Body weight 163 lb 163 lb [facility] ([facility] Body height 59 in 59 in [facility] ([facility]) Body mass index 32.9 kg/m2 32.9 kg/m2 [facility] ([facility] (BMI) [Ratio] Medical Ser vice) Diastolic blood 80 mm[Hg] 80 mm[Hg] [facility] ([facility]) Systolic blood 120 mm[Hg] 120 mm[Hg] [facility] ([facility] Body weight 163 lb 163 lb [facility] ([facility]) Body height 59 in 59 in [facility] ([facility]) Diastolic blood 70 mm[Hg] 70 mm[Hg] [facility] ([facility]) Systolic blood 120 mm[Hg] 120 mm[Hg] [facility] ([facility] Body weight 163 lb 163 lb [facility] ([employer] [facility])
== END 2020-01-07 15:54 | disposition home or self-care (01) ==
LOC: JERFT 14:20 → JER 14:20 → JERFT 15:54
PROC: 0H99XZZ Drainage of Perineum Skin, External Approach (ICD-10-PCS; principal; 2020-01-07)
DX: L02.214 Cutaneous abscess of groin (principal); R21 Rash and other nonspecific skin eruption
CPT/HCPCS: 87070; 87205; 99282-25; 99284-25